=== PATIENT | male | born 1960 | race Asian ===

== ENCOUNTER 2019-01-28 23:52 | Emergency (ER) | payer OTHER ==
[2019-01-29 01:25] VITALS: BP 151/98; PULSE 18; TEMP 98.2; BMI 27.4
--- NOTE | 2019-01-29 01:42 | PDOC ---
History of Present Illness - General Chief Complaint: Lethargy Stated Complaint: WEAKNESS - History of Present Illness Initial Comments: The pt is a 58M w/ a history of gout who presents for evaluation of an odd sensation that he felt today at 1400. The pt reports 30-40 seconds of an 'out of body' sensation while pushing a cart. It resolved spontaneously, has never happened before or since, denies associated symptoms. He denies current symptoms, fevers/chills, chest pain, SOB, abdominal pain, N/V/ C/D, or changes in sensation PMH: Gout PSH: Denies Meds: Uloric, Methylprednisolone Allergies: Denies PMD: Denies 01/29/19 03:24 Past History - Past Medical History Allergies/Adverse Reactions: Allergies Allergy/AdvReac Type Severity Reaction Status Date / Time No Known Allergies Allergy Verified 01/29/19 01:02 - Suicide/Smoking/Psychosocial Hx Smoking History: Never smoked Have you smoked in the past 12 months: No Information on smoking cessation initiated: No Hx Alcohol Use: No Drug/Substance Use Hx: No Review of Systems - Review of Systems Able to Perform ROS?: Yes Comments:: GENERAL/CONSTITUTIONAL: No fever or chills. No weakness HEAD, EYES, EARS, NOSE AND THROAT: No change in vision. No ear pain or discharge. No sore throat CARDIOVASCULAR: No chest pain or shortness of breath RESPIRATORY: Denies cough, hemoptysis GASTROINTESTINAL: No nausea, vomiting, diarrhea or constipation GENITOURINARY: No dysuria, frequency, or change in urination MUSCULOSKELETAL: chronic gouty pain SKIN: No rash NEUROLOGIC: No headache, loss of consciousness, or change in strength/sensation ENDOCRINE: No increased thirst. No abnormal weight change HEMATOLOGIC/LYMPHATIC: No anemia, easy bleeding, or history of blood clots ALLERGIC/IMMUNOLOGIC: No hives or skin allergy 01/29/19 01:36 Is the patient limited Sudanese proficient: No *Physical Exam - Vital Signs Last Vital Signs Temp Pulse Resp BP Pulse Ox 98.2 F 18 L 15 151/98 100 01/28/19 23:52 01/28/19 23:52 01/28/19 23:52 01/28/19 23:52 01/28/19 23:52 - Physical Exam Comments: GENERAL: Awake, alert, and oriented to person/place/time, in no acute distress HEAD: No signs of trauma, normocephalic, atraumatic EYES: PERRLA, EOMI, sclera anicteric, conjunctiva clear ENT: Hearing grossly normal, nares patent, oropharynx clear without exudates. Moist mucosa LUNGS: No distress, speaks full sentences, clear to auscultation bilaterally HEART: Regular rate and rhythm, normal S1 and S2, no murmurs appreciated, peripheral pulses normal and equal bilaterally ABDOMEN: Soft, nontender, normoactive bowel sounds. 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 Normal speech, no focal sensorimotor deficits SKIN: Warm, Dry 01/29/19 04:00 ED Treatment Course - LABORATORY CBC & Chemistry Diagram: 01/29/19 02:40 01/29/19 02:40 Medical Decision Making - Medical Decision Making The pt is a 58M w/ a history of gout who presents for evaluation of a short episode of having an odd sensation w/ exertion Ddx includes ACS, hypovolemia, electrolyte abn, anemia ED Course CMP, CBC sent ECG CXR Hgb 6.4, will obtain T/S Pt refusing transfusion and admission The patient is clinically not intoxicated, free from distracting pain, appears to have intact insight, judgment and reason and in my medical opinion has the capacity to make decisions. The patient is also not under any duress to leave the hospital. I have voiced my concerns for the patient's health given that a full evaluation and treatment had not occurred. I have discussed the need for continued evaluation and need for transfusion. Risks including but not limited to , delay in diagnosis, change in lifestyle and functionality, prolonged hospitalization, and prolonged illness were discussed. Because I have been unable to convince the patient to stay, I answered all of their questions about their condition and asked them to return to the ED as soon as possible to complete their evaluation, especially if their symptoms worsen or do not improve. I emphasized that leaving against medical advice does not preclude returning here for further evaluation. I asked the patient to return if they change their mind about the further evaluation and treatment. I strongly encouraged the patient to return to this Emergency Department or any Emergency Department at any time, particularly with worsening symptoms Dispo: AMA, AMA form signed Lytes wnl Cr and BUN mildly elevated, likely pre-renal Trop I neg *DC/Admit/Observation/Transfer Diagnosis at time of Disposition: Symptomatic anemia Gout Qualifiers: Gout site: unspecified site Gout etiology: unspecified cause Chronicity: chronic Presence of tophus: with tophus Qualified Code(s): [id number].[id number] - Chronic gout, unspecified, with tophus (tophi) - Discharge Dispostion Disposition: AGAINST MEDICAL ADVICE Condition at time of disposition: Fair Decision to Admit order: No - Referrals Referrals: [facility] [Provider Group] - Patient Instructions Printed Discharge Instructions: Anemia Additional Instructions: You were seen in the Emergency Department and found to have sever anemia with a hemoglobin of 6.4. We recommend that you receive a blood transfusion and have the cause evaluated. Your symptoms could worsen to include dizziness, heart attack, fall, trauma, or . Return to an Emergency Department if you have any worsening/concerning symptoms. Follow up with your primary care physician, or referral given. - Post Discharge Activity
--- NOTE | 2019-01-29 01:52 | PDOC ---
Attending Attestation - Resident Resident Name: Jarrod Rothman - ED Attending Attestation I have performed the following: I have examined & evaluated the patient, The case was reviewed & discussed with the resident, I agree w/resident's findings & plan - HPI HPI: 01/29/19 03:35 58-year-old male complaining of near syncope during exertion today. He denies nausea vomiting chest pain fever or shortness of breath. - Physicial Exam PE: 01/29/19 03:35 agree with resident's exam 01/29/19 03:36 - Medical Decision Making 01/29/19 03:36 58-year-old male with lightheadedness Labs significant for anemia And for transfusion and admission for further evaluation
[2019-01-29 02:44] LABS: BASO % 0.8 % (0-2.0); EOS % 0.6 % (0-4.5); HEMATOCRIT 21.8 % (35.4-49); LYMPH % 17.3 % (8-40); MCH 20.1 pg (25.7-33.7); MCHC 29.3 g/dl (32.0-35.9); MEAN CELL VOLUME 68.4 fl (80-96); MEAN PLT VOLUME 7.9 fl (7.5-11.1); MONO % 7.4 % (3.8-10.2); NEUT % 73.9 % (42.8-82.8); PLATELET COUNT 445 K/MM3 (134-434); RBC 3.18 M/mm3 (4.00-5.60)
[2019-01-29 02:48] LABS: HEMOGLOBIN 6.4 GM/dL (11.7-16.9)
[2019-01-29 03:44] LABS: ALBUMIN 3.5 g/dl (3.4-5.0); ALK PHOS 84 U/L (45-117); ANION GAP 9 MMOL/L (8-16); BILIRUBIN,TOTAL 0.2 mg/dL (0.2-1); BLOOD UREA NITROGEN 40 mg/dL (7-18); CALCIUM 8.3 mg/dL (8.5-10.1); CHLORIDE 108 mmol/L (98-107); CO2 24 mmol/L (21-32); CREATININE 1.5 mg/dL (0.55-1.3); GLUCOSE,RANDOM 81 mg/dL (74-106); SGOT/AST 14 U/L (15-37); SGPT/ALT 20 U/L (13-61); SODIUM 141 mmol/L (136-145); TOT PROT 6.7 g/dl (6.4-8.2)
[2019-01-29 06:16] LABS: ANISOCYTOSIS 3+; MACROCYTOSIS 0; PLATELET ESTIMATE NORMAL
== END 2019-01-29 05:10 | disposition left against medical advice (07) ==
LOC: JER 23:52
DX: D64.89 Other specified anemias (principal); M1A.9XX1 Chronic gout, unspecified, with tophus (tophi)
CPT/HCPCS: 36415; 80053; 84484; 85025; 86850; 86900; 86901; 99282-25

== ENCOUNTER 2019-02-01 14:08 | Inpatient (IN) | payer OTHER | END 2019-02-12 12:05 | LOC: J4S 02-02 00:01 → J6S 02-05 19:39 → JER 14:08 → J4S 02-03 16:13 → JERBED 16:45 ==

== ENCOUNTER 2021-06-01 20:17 | Inpatient (IN) | payer OTHER ==
[2021-06-01 21:31] LABS: LYMPH % 10.6 % (8-40)
[2021-06-01 21:36] LABS: BASO % 0.6 % (0-2.0); MCHC 29.5 g/dl (32.0-35.9); MEAN PLT VOLUME 8.4 fl (7.5-11.1); MONO % 5.9 % (3.8-10.2); NEUT % 82.9 % (42.8-82.8); PLATELET COUNT 443 10^3/uL (134-434); RBC 2.37 M/mm3 (4.00-5.60); RDW 21.1 % (11.9-15.9); WHITE BLOOD COUNT 14.5 K/mm3 (4.0-10.0)
[2021-06-01 21:38] LABS: MCH 16.2 pg (25.7-33.7)
[2021-06-01 21:40] LABS: INR 1.07 (0.83-1.09); PROTHROMBIN TIME (PATIENT) 13.2 SEC (9.7-13.0)
[2021-06-01 21:41] LABS: HEMOGLOBIN 3.8 GM/dL (11.7-16.9)
[2021-06-01 21:42] LABS: ACTIVATED PTT 28.5 SECONDS (25.2-36.5)
[2021-06-01 21:48] LABS: CHLORIDE 110 mmol/L (98-107); SODIUM 140 mmol/L (136-145)
[2021-06-01 21:50] LABS: CALCIUM 7.9 mg/dL (8.5-10.1)
[2021-06-01 21:51] LABS: ALBUMIN 3.5 g/dl (3.4-5.0); ANION GAP 10 MMOL/L (8-16); BLOOD UREA NITROGEN 49.2 mg/dL (7-18); CO2 19 mmol/L (21-32); GLUCOSE,RANDOM 111 mg/dL (74-106)
[2021-06-01 21:54] LABS: CREATININE 1.5 mg/dL (0.55-1.3); SGOT/AST 7 U/L (15-37); SGPT/ALT 10 U/L (13-61)
[2021-06-01 21:55] LABS: BILIRUBIN,TOTAL 0.2 mg/dL (0.2-1)
[2021-06-01 21:56] LABS: TOT PROT 6.2 g/dl (6.4-8.2)
[2021-06-01 21:57] LABS: ALK PHOS 54 U/L (45-117)
[2021-06-01 22:47] LABS: ANISOCYTOSIS 2+; MACROCYTOSIS 0; OVALOCYTE 2+; PLATELET ESTIMATE NORMAL
[2021-06-02 01:44] LABS: URINE APPEARANCE CLEAR; URINE BILIRUBIN NEGATIVE (NEGATIVE); URINE COLOR YELLOW; URINE GLUCOSE (UA) NEGATIVE (NEGATIVE); URINE KETONE NEGATIVE (NEGATIVE); URINE LEUK ESTERASE NEGATIVE (NEGATIVE); URINE NITRITE NEGATIVE (NEGATIVE); URINE PROTEIN NEGATIVE (NEGATIVE); URINE UROBILINOGEN 0.2 mg/dL (0.2-1.0)
[2021-06-02] MEDS ORDERED: PANTOPRAZOLE SODIUM 40 MG VIAL IVPUSH ONE (03:21)
[2021-06-02] MEDS: SODIUM CHLORIDE 1,000 ML IV SCH (03:52)
[2021-06-02] MEDS ORDERED: PANTOPRAZOLE SODIUM 40 MG/100 ML BAG IVPB ONE ×2 (03:55→15:06)
[2021-06-02 04:09] LABS: IRON SERUM 5 ug/dL (50-175)
[2021-06-02 04:10] LABS: TOTAL IRON BINDING CAPACITY 347 ug/dL (250-450)
[2021-06-02 04:26] LABS: RETICULOCYTES 2.85 % (0.5-1.5)
[2021-06-02 06:43] LABS: MCH 21.8 pg (25.7-33.7); MEAN CELL VOLUME 65.8 fl (80-96); MEAN PLT VOLUME 8.5 fl (7.5-11.1); PLATELET COUNT 328 10^3/uL (134-434); RBC 2.73 M/mm3 (4.00-5.60); RDW 33.5 % (11.9-15.9); WHITE BLOOD COUNT 9.3 K/mm3 (4.0-10.0)
[2021-06-02 07:02] LABS: CHLORIDE 115 mmol/L (98-107); SODIUM 142 mmol/L (136-145)
[2021-06-02 07:05] LABS: ANION GAP 7 MMOL/L (8-16); CALCIUM 7.6 mg/dL (8.5-10.1); CO2 20 mmol/L (21-32)
[2021-06-02 07:06] LABS: ALBUMIN 2.9 g/dl (3.4-5.0); BLOOD UREA NITROGEN 39.4 mg/dL (7-18); GLUCOSE,RANDOM 89 mg/dL (74-106); MAGNESIUM 2.4 mg/dL (1.8-2.4)
[2021-06-02 07:08] LABS: PHOSPHOROUS 2.7 mg/dL (2.5-4.9); SGOT/AST 5 U/L (15-37); SGPT/ALT 10 U/L (13-61); TRIGLYCERIDES 112 mg/dL (0-150); URIC ACID 8.8 mg/dL (2.6-7.2)
[2021-06-02 07:09] LABS: CHOLESTEROL 86 mg/dL (50-200); CREATININE 1.2 mg/dL (0.55-1.3)
[2021-06-02 07:10] LABS: BILIRUBIN,TOTAL 0.5 mg/dL (0.2-1); LDL CHOLESTEROL (ONLY SJRH) 42 mg/dL (5-100); TOT PROT 5.3 g/dl (6.4-8.2)
[2021-06-02 07:11] LABS: ALK PHOS 50 U/L (45-117); HDL CHOLESTEROL 27 mg/dL (40-60)
[2021-06-02] MEDS ORDERED: FUROSEMIDE 40 MG/4 ML INJECTABLE VIAL IVPUSH PRN (09:08)
[2021-06-02 09:38] LABS: ANISOCYTOSIS 2+; MACROCYTOSIS 0; PLATELET ESTIMATE NORMAL; ROULEAU 1+; TARGET CELLS 1+
[2021-06-02] MEDS ORDERED: PANTOPRAZOLE SODIUM 40 MG VIAL IVPUSH SCH (10:00)
[2021-06-02] MEDS ORDERED: PANTOPRAZOLE SODIUM 40 MG VIAL ONE (15:06)
[2021-06-02] MEDS: PANTOPRAZOLE SODIUM 80 MG in SODIUM CHLORIDE 100 ML IVPB SCH (15:23)
[2021-06-02 20:01] LABS: BASO % 0.8 % (0-2.0); EOS % 0.8 % (0-4.5); HEMATOCRIT 24.8 % (35.4-49); HEMOGLOBIN 8.3 GM/dL (11.7-16.9); LYMPH % 12.4 % (8-40); MCH 24.1 pg (25.7-33.7); MCHC 33.5 g/dl (32.0-35.9); MEAN CELL VOLUME 71.7 fl (80-96); MEAN PLT VOLUME 8.1 fl (7.5-11.1); PLATELET COUNT 329 10^3/uL (134-434); RBC 3.46 M/mm3 (4.00-5.60); RDW 33.5 % (11.9-15.9); WHITE BLOOD COUNT 10.2 K/mm3 (4.0-10.0)
[2021-06-02] MEDS ORDERED: PT OWN MED DRAWER 7, Y5N ONE (21:36)
[2021-06-03] MEDS: SODIUM CHLORIDE 1,000 ML IV SCH ×2 (01:38→21:06)
[2021-06-03] MEDS: PANTOPRAZOLE SODIUM 80 MG in SODIUM CHLORIDE 100 ML IVPB SCH ×2 (01:39→13:22)
[2021-06-03 07:43] LABS: EOS % 2.1 % (0-4.5); HEMATOCRIT 23.7 % (35.4-49); LYMPH % 18.7 % (8-40); MCHC 33.7 g/dl (32.0-35.9); MEAN CELL VOLUME 71.2 fl (80-96); MEAN PLT VOLUME 8.7 fl (7.5-11.1); MONO % 10.2 % (3.8-10.2); PLATELET COUNT 338 10^3/uL (134-434); RBC 3.33 M/mm3 (4.00-5.60); RDW 33.1 % (11.9-15.9); WHITE BLOOD COUNT 6.6 K/mm3 (4.0-10.0)
[2021-06-03 08:05] LABS: ALBUMIN 2.9 g/dl (3.4-5.0)
[2021-06-03 08:06] LABS: BLOOD UREA NITROGEN 17.1 mg/dL (7-18)
[2021-06-03 08:07] LABS: BILIRUBIN,TOTAL 1.1 mg/dL (0.2-1); TOT PROT 5.3 g/dl (6.4-8.2)
[2021-06-03 08:08] LABS: CALCIUM 7.5 mg/dL (8.5-10.1)
[2021-06-03 08:09] LABS: CREATININE 1.1 mg/dL (0.55-1.3); MAGNESIUM 2.4 mg/dL (1.8-2.4); PHOSPHOROUS 2.9 mg/dL (2.5-4.9)
[2021-06-03] MEDS ORDERED: COLCHICINE 0.6 MG CAP PO ONE ×2 (10:24→12:00)
[2021-06-03] MEDS ORDERED: IRON SUCROSE INJECTION 100 MG in SODIUM CHLORIDE 95 ML IVPB ONE (11:30)
[2021-06-03] MEDS: POTASSIUM CITRATE/CITRIC ACID 2 MEQ/ML ML PO SCH ×2 (11:37→13:28)
[2021-06-03] MEDS: ACETAMINOPHEN 325 MG TABLET (FP) PO PRN (21:04)
[2021-06-04] MEDS: PANTOPRAZOLE SODIUM 80 MG in SODIUM CHLORIDE 100 ML IVPB SCH ×5 (01:01→23:40)
[2021-06-04 08:10] LABS: BASO % 0.8 % (0-2.0); EOS % 1.4 % (0-4.5); HEMATOCRIT 25.4 % (35.4-49); HEMOGLOBIN 8.5 GM/dL (11.7-16.9); LYMPH % 17.6 % (8-40); MCH 23.8 pg (25.7-33.7); MCHC 33.3 g/dl (32.0-35.9); MEAN CELL VOLUME 71.4 fl (80-96); MEAN PLT VOLUME 8.5 fl (7.5-11.1); MONO % 12.6 % (3.8-10.2); NEUT % 67.6 % (42.8-82.8); PLATELET COUNT 351 10^3/uL (134-434); RBC 3.56 M/mm3 (4.00-5.60); RDW 34.2 % (11.9-15.9); WHITE BLOOD COUNT 7.1 K/mm3 (4.0-10.0)
[2021-06-04] MEDS ORDERED: PT OWN MED DRAWER 7, Y5N ONE ×2 (08:41→10:28)
[2021-06-04] MEDS ORDERED: IRON SUCROSE INJECTION 100 MG in SODIUM CHLORIDE 95 ML IVPB ONE (09:28)
[2021-06-04] MEDS: ALLOPURINOL 300 MG TABLET (FP) PO SCH (10:22)
[2021-06-04] MEDS: ACETAMINOPHEN 325 MG TABLET (FP) PO PRN ×2 (10:22→20:08)
[2021-06-04] MEDS: POTASSIUM CITRATE/CITRIC ACID 2 MEQ/ML ML PO SCH (10:24)
[2021-06-04] MEDS: COLCHICINE 0.6 MG CAP PO SCH (11:14)
[2021-06-04 15:13] VITALS: BMI 23.8
[2021-06-05 09:01] LABS: BASO % 0.6 % (0-2.0); EOS % 1.7 % (0-4.5); HEMOGLOBIN 8.6 GM/dL (11.7-16.9); LYMPH % 11.4 % (8-40); MCHC 33.1 g/dl (32.0-35.9); MEAN CELL VOLUME 72.6 fl (80-96); MEAN PLT VOLUME 8.4 fl (7.5-11.1); MONO % 10.7 % (3.8-10.2); NEUT % 75.6 % (42.8-82.8); PLATELET COUNT 384 10^3/uL (134-434); RBC 3.58 M/mm3 (4.00-5.60); RDW 34.2 % (11.9-15.9); WHITE BLOOD COUNT 7.7 K/mm3 (4.0-10.0)
[2021-06-05] MEDS ORDERED: PT OWN MED DRAWER 7, Y5N ONE ×3 (09:16→10:21)
[2021-06-05 09:37] LABS: CALCIUM 7.7 mg/dL (8.5-10.1)
[2021-06-05 09:38] LABS: MAGNESIUM 2.3 mg/dL (1.8-2.4)
[2021-06-05 09:40] LABS: CREATININE 1.1 mg/dL (0.55-1.3)
[2021-06-05] MEDS ORDERED: PANTOPRAZOLE 40 MG TABLET PO SCH (10:00)
[2021-06-05] MEDS: POTASSIUM CITRATE/CITRIC ACID 2 MEQ/ML ML PO SCH (10:22)
[2021-06-05] MEDS: ALLOPURINOL 300 MG TABLET (FP) PO SCH (10:22)
[2021-06-05] MEDS: COLCHICINE 0.6 MG CAP PO SCH (10:22)
[2021-06-05] MEDS: PANTOPRAZOLE SODIUM 80 MG in SODIUM CHLORIDE 100 ML IVPB SCH (10:26)
[2021-06-05] MEDS: ACETAMINOPHEN 325 MG TABLET (FP) PO PRN ×2 (12:33→17:52)
[2021-06-05 15:35] VITALS: BP 139/78; PULSE 74; TEMP 99.2
[2021-06-06] MEDS ORDERED: IRON POLYSACCHARIDES 150 MG CAPSULE PO SCH (10:00)
[2021-06-08 10:15] LABS: HEMOGLOBIN 5.9 GM/dL (11.7-16.9)
== END 2021-06-05 20:15 | disposition home or self-care (01) | DRG 253 ==
LOC: JER 20:17 → JERBED 21:43 → J4W 06-02 19:02 → J6S 06-04 22:28
PROVIDERS: ADMIT Internal Medicine; ATTEND Internal Medicine
PROC: 30233N1 Transfusion of Nonautologous Red Blood Cells into Peripheral Vein, Percutaneous Approach (ICD-10-PCS; principal; 2021-06-01)
DX: K92.2 Gastrointestinal hemorrhage, unspecified (principal); D62 Acute posthemorrhagic anemia; I12.9 Hypertensive chronic kidney disease with stage 1 through stage 4 chronic kidney disease, or unspecified chronic kidney disease; N18.9 Chronic kidney disease, unspecified; Z79.52 Long term (current) use of systemic steroids; M10.00 Idiopathic gout, unspecified site; D72.829 Elevated white blood cell count, unspecified; Z79.1 Long term (current) use of non-steroidal anti-inflammatories (NSAID); E86.1 Hypovolemia; M10.9 Gout, unspecified; K57.90 Diverticulosis of intestine, part unspecified, without perforation or abscess without bleeding; I95.9 Hypotension, unspecified
CPT/HCPCS: 36415; 36430; 76775-TC; 80048; 80053; 80061; 81003; 82272; 82550; 82728; 83540; 83550; 83735; 84100; 84443; 84484; 84550; 85025; 85045; 85610; 85730; 86140; 86850; 86900; 86901; 86922; 99285-25; C9803; J1756; P9058; U0003; U0005